=== PATIENT | female | born 2000 | race Two or more races ===

== ENCOUNTER 2023-10-19 09:37 | Emergency (ER) | payer OTHER ==
[~2023-10-19] VITALS: Ht 149.9 cm; Wt 52.2 kg
[2023-10-19 11:39] LABS: BILIRUBIN TOTAL 1.68 mg/dL (0.3-1.2); CALCIUM 10.7 mg/dL (8.5-10.1); CREATININE SERUM 1.04 mg/dL (0.55-1.02); GFR 67.56; GLOBULINA 4.3 G/DL (2.4-3.5); POTASSIUM 3.07 mEq/L (3.5-5.1); TOTAL PROTEIN 9.3 gm/dL (6.4-8.2)
[2023-10-19 11:57] LABS: PH,URINE 5.5 (5.0-8.0); URINE APPEARANCE Cloudy; URINE BILIRRUBIN Small (NEGATIVE); URINE BLOOD Moderate; URINE COLOR Dark Yellow; URINE GLUCOSE Negative (NEGATIVE); URINE LEUKOCYTE Trace; URINE NITRATE Negative; URINE PROTEIN 30 (NEGATIVE)
[2023-10-19 12:00] LABS: URINE BACTERIA 2071.3 uL (0.0-1933); URINE RBC 26.1 uL (0.0-20.8); URINE WBC 23.3 uL (0.0-23.2)
[2023-10-19] MEDS ORDERED: ONDANSETRON ODT8 MG PO (13:54)
[2023-10-19] MEDS ORDERED: PRENA1 TRUE CO1 EACH PO (13:54)
== END 2023-10-19 14:17 | disposition home or self-care (01) ==
LOC: ER 09:38 → EMR PED 10:15 → ER 14:17
PROVIDERS: General Practice
DX: O20.8 Other hemorrhage in early pregnancy (principal); O21.0 Mild hyperemesis gravidarum; Z3A.01 Less than 8 weeks gestation of pregnancy

== ENCOUNTER 2023-12-02 10:09 | Outpatient (CLI) | payer OTHER ==
[~2023-12-02 10:09] MED LIST: ONDANSETRON ODT8 MG PO; PRENA1 TRUE CO1 EACH PO
== END 2023-12-02 10:10 | disposition home or self-care (01) ==
LOC: PRENATAL 10:09
PROVIDERS: ATTEND Obstetrics & Gynecology Maternal & Fetal Medicine
DX: O36.80X0 Pregnancy with inconclusive fetal viability, not applicable or unspecified (principal); Z36.82 Encounter for antenatal screening for nuchal translucency; Z36.9 Encounter for antenatal screening, unspecified; Z3A.12 12 weeks gestation of pregnancy

== ENCOUNTER 2024-04-25 08:19 | Outpatient (CLI) | payer OTHER | END 2024-04-25 08:20 | disposition home or self-care (01) | LOC: PRENATAL 08:19 | PROVIDERS: ATTEND Obstetrics & Gynecology Maternal & Fetal Medicine | DX: O26.843 Uterine size-date discrepancy, third trimester (principal); O36.8130 Decreased fetal movements, third trimester, not applicable or unspecified; Z3A.32 32 weeks gestation of pregnancy ==

== ENCOUNTER 2024-05-24 13:12 | Outpatient (CLI) | payer OTHER | END 2024-05-24 13:14 | disposition home or self-care (01) | LOC: PRENATAL 13:12 | PROVIDERS: ATTEND Obstetrics & Gynecology Maternal & Fetal Medicine | DX: Z76.1 Encounter for health supervision and care of foundling (principal) ==

== ENCOUNTER → 2024-05-29 08:34 | Outpatient (CLI) | payer OTHER | END | disposition home or self-care (01) | LOC: PRENATAL 08:34 | PROVIDERS: ATTEND Obstetrics & Gynecology Maternal & Fetal Medicine | DX: O26.843 Uterine size-date discrepancy, third trimester (principal); O36.8130 Decreased fetal movements, third trimester, not applicable or unspecified; O41.03X0 Oligohydramnios, third trimester, not applicable or unspecified; Z3A.37 37 weeks gestation of pregnancy ==

== ENCOUNTER 2024-05-29 11:38 | Inpatient (IN) | payer OTHER ==
[~2024-05-29] VITALS: Ht 147.3 cm; Wt 68.9 kg
[2024-05-29 12:00] VITALS: BP 126/76
[2024-05-29] MEDS ORDERED: RINGERS SOLUTION,LACTATED 1,000 ML IV SCH (12:00)
[2024-05-29 12:08] VITALS: BP 126/76
[2024-05-29 13:34] LABS: HEMATOCRIT 33.8 % (36.0-45.00); HEMOGLOBIN 11.5 g/dL (12.0-15.00); MEAN CELL VOLUME 88.5 fL (80.00-100.00); MEAN CORPUSCULAR HEMOGLOBIN 30.1 pg (27.00-32.0); PLATELET COUNT 321 K/uL (150-450); RED BLOOD COUNT 3.82 M/uL (4.00-6.00); RED CELL DISTRIBUTION WIDTH 13.1 % (11.5-14.5)
[2024-05-29 13:41] LABS: URINE APPEARANCE Cloudy; URINE BILIRRUBIN Negative (NEGATIVE); URINE BLOOD Negative; URINE COLOR Yellow; URINE GLUCOSE Negative (NEGATIVE); URINE KETONE Negative (NEGATIVE); URINE LEUKOCYTE Large; URINE NITRATE Negative; URINE PROTEIN Negative (NEGATIVE); URINE UROBILINOGEN 0.2 E.U./dl
[2024-05-29 13:44] LABS: URINE CAST 1.83 uL (0.0-1.40); URINE EPITHELIAL CELLS 89.3 uL (0.0-38.8); URINE RBC 8.5 uL (0.0-20.8); URINE WBC 154.4 uL (0.0-23.2)
[2024-05-29 13:56] LABS: URINE BACTERIA > 9821.5 uL (0.0-1933)
[2024-05-29 13:57] LABS: URINE YEAST FEW /hpf
[2024-05-29 13:59] LABS: INR < 0.93; PARTIAL THROMBOPLASTIN TIME 27.4 SECONDS (22.0-34.0); PROTHROMBIN TIME 9.8 SECONDS (9.0-11.5)
[2024-05-29 14:36] LABS: ALBUMIN 2.8 gm/dL (3.4-5.0); BILIRUBIN TOTAL 0.32 mg/dL (0.3-1.2); CALCIUM 9.2 mg/dL (8.5-10.1); CREATININE SERUM 0.5 mg/dL (0.55-1.02); GFR 155.75; GLOBULINA 4.1 G/DL (2.4-3.5); POTASSIUM 4.35 mEq/L (3.5-5.1); TOTAL PROTEIN 6.9 gm/dL (6.4-8.2)
[2024-05-29 15:17] VITALS: BP 124/65
[2024-05-29] MEDS ORDERED: MISOPROSTOL 25 MCG/4 ML GEL.W.APPL VAG NR (16:00)
[2024-05-29 23:49] VITALS: BP 132/70
[2024-05-30] VITALS (8 sets, daily range): BP systolic 121–134; BP diastolic 62–87
[2024-05-30] MEDS ORDERED: OXYTOCIN 500 ML IV SCH (10:45)
[2024-05-30] MEDS ORDERED: MEPERIDINE HCL/PF 25 MG/ML VIAL IV ONE (14:30)
[2024-05-30] MEDS ORDERED: PROMETHAZINE HCL 25 MG/ML AMPUL IV ONE (14:30)
[2024-05-30] MEDS ORDERED: OXYTOCIN 20 UNITS/1000ML RL PIGGYBAG IV ONE (15:20)
[2024-05-30] MEDS ORDERED: ERYTHROMYCIN BASE 1 GM TUBE OP ONE (15:20)
[2024-05-30] MEDS ORDERED: CHLORHEXIDINE GLUCONATE 120 ML BOTTLE TOP ONE (15:20)
[2024-05-30] MEDS ORDERED: LIDOCAINE HCL 1% 10ML VIAL ONE (15:21)
[2024-05-30] MEDS ORDERED: ONDANSETRON HCL 2 MG/ML VIAL IV NR (18:30)
[2024-05-30] MEDS ORDERED: ACETAMINOPHEN 500 MG GEL..CAP PO PRN (20:30)
[2024-05-30] MEDS ORDERED: OXYTOCIN 1,000 ML IV SCH (20:30)
[2024-05-31 01:25] LABS: HEMATOCRIT 32.2 % (36.0-45.00); MEAN CELL VOLUME 89.4 fL (80.00-100.00); MEAN CORPUSCULAR HEMOGLOBIN 29.7 pg (27.00-32.0); MEAN CORPUSCULAR HGB CONC 33.2 g/dl (32.0-36.0); PLATELET COUNT 277 K/uL (150-450); RED CELL DISTRIBUTION WIDTH 12.9 % (11.5-14.5)
[2024-05-31 01:26] LABS: HEMOGLOBIN 10.7 g/dL (12.0-15.00)
[2024-05-31 01:57] VITALS: BP 118/77
[2024-05-31 08:00] VITALS: BP 116/82
[2024-05-31] MEDS ORDERED: PNV,CALCIUM 72/IRON/FOLIC ACID 1 TAB TABLET PO SCH (09:00)
[2024-05-31 10:25] VITALS: BP 116/82
[2024-05-31 16:39] VITALS: BP 115/78
[2024-06-01] VITALS: BP 121/80
[2024-06-01 09:06] VITALS: BP 139/80
== END 2024-06-01 12:54 | disposition home or self-care (01) | DRG 807 ==
LOC: LDR 11:38 → OB/GYN 05-30 21:32
PROVIDERS: Obstetrics & Gynecology; ADMIT Student in an Organized Health Care Education/Training Program; ATTEND Student in an Organized Health Care Education/Training Program
PROC: 4A1HXCZ Monitoring of Products of Conception, Cardiac Rate, External Approach (ICD-10-PCS; 2024-05-29)
PROC: 3E0P7VZ Introduction of Hormone into Female Reproductive, Via Natural or Artificial Opening (ICD-10-PCS; 2024-05-29)
PROC: 10E0XZZ Delivery of Products of Conception, External Approach (ICD-10-PCS; principal; 2024-05-30)
PROC: 3E033VJ Introduction of Other Hormone into Peripheral Vein, Percutaneous Approach (ICD-10-PCS; 2024-05-30)
DX: O80 Encounter for full-term uncomplicated delivery (principal); Z37.0 Single live birth; Z3A.38 38 weeks gestation of pregnancy; Z20.822 Contact with and (suspected) exposure to COVID-19